=== PATIENT | male | born 1940 | race Hispanic/Latino ===

== ENCOUNTER 2018-01-26 21:01 | Emergency (ER) | payer OTHER ==
[2018-01-26] MEDS ORDERED: TETANUS/DIPHTHERIA TOXOID [ADULT] 0.5 ML VIAL IM ONE (21:23)
[2018-01-26] MEDS ORDERED: ACETAMINOPHEN EXTRA STRENGTH 500 MG TABLET ONE (21:23)
[2018-01-26] MEDS ORDERED: CEPHALEXIN 500 MG CAPSULE ONE (21:36)
[2018-01-26] MEDS ORDERED: HYDROCODONE/ACETAMINOPHEN 5/325 MG TAB ONE (21:37)
== END 2018-01-26 23:16 | disposition home or self-care (01) ==
LOC: EDH 21:01
DX: S91.204A Unspecified open wound of right lesser toe(s) with damage to nail, initial encounter (principal); E11.9 Type 2 diabetes mellitus without complications; X58.XXXA Exposure to other specified factors, initial encounter; Y93.89 Activity, other specified; Y92.89 Other specified places as the place of occurrence of the external cause; Y99.8 Other external cause status
CPT/HCPCS: 82948; 90471; 90714